=== PATIENT | female | born 1960 | race Caucasian/White ===

== ENCOUNTER 2017-10-22 09:03 | Day surgery (SDC) | payer MEDICAID, SELFPAY ==
[2017-10-22 09:21] VITALS: BP 171/91; PULSE 78; RESP 16; TEMP 36.3; O2SAT 100; BMI 23.1
--- NOTE | 2017-10-22 10:39 | COLBX_PTH ---
PATIENT: SUE BROWN LOC: EN U#:[id number] AGE/SX: 57/F ROOM: RE10/22/[address]: Dr. Carter Workman MD : 1960 BED: DIS: 10/22/2017 SPEC #: [id number] RECD: 10/22/17 15:38 STATUS: VIANEY REQ #: [id number] RAVIN: 10/22/17 10:[address]: Carter Workman DEPT: SURGICAL PATHOLOGY RECD BY: Cory Riojas ENTERED: 10/23/17 08:52 SP TYPE: COLON BX OTHR DR: Dr. Luz Maria Prado DO Tissues: Descending colon Procedures: Surgery Specimen Level IV HEADER OPERATION: Colonoscopy PRE-OP DIAGNOSIS: Screening TISSUE SUBMITTED: Descending colon polyp biopsy MICROSCOPIC DIAGNOSIS Descending colon polyp, biopsy: Fragments of tubular adenoma. AM:jarrell 10/24/17 MICROSCOPIC DESCRIPTION Slides are reviewed. GROSS DESCRIPTION Received in fixative is one container labeled with the patient's name and designated descending colon biopsy. The specimen consists of two irregular fragments of light morocho soft tissue that in aggregate measure 0.5 x 0.2 x 0.1 cm. The specimen is totally submitted in one cassette. / AM:jarrell 10/23/17 TC:5 CPT: 08549
--- NOTE | 2017-10-22 10:43 | PCM.HP.STD ---
Problem List (1) Personal history of colonic polyps Status: Acute History of Present Illness Date of Admission: 10/22/17 The patient is a 57 year old F with a personal history of colonic polyps. She presents today for a colonoscopy. Past Medical History Allergies sulfamethoxazole [From Bactrim] Adverse Reaction (Verified 10/16/17 09:23) Mucosal lesions trimethoprim [From Bactrim] Adverse Reaction (Verified 10/16/17 09:23) Mucosal lesions Home Medications: Ambulatory Orders Medication Instructions Recorded Dorzolamide-Timolol Eye Drops 1 drop EACH EYE BID 10/16/17 Latanoprost 0.005% [Xalatan 1 drop EACH EYE QHS 10/16/17 Opthalmic] Metoprolol Tartrate 25 mg PO BID 10/16/17 Smoking Status: Never smoker Review of Systems Cardiovascular: Denies: Chest Pain, Chest Pressure, Chest Tightness, Palpitations Respiratory: Denies: Cough, Hemoptysis, Shortness of breath at rest, Shortness of breath upon exertion, Wheezing Gastrointestinal: Denies: Abdominal Pain, Constipation, Diarrhea, Hematemesis, Nausea, Melena, Vomiting VTE Information - Inpt Only VTE Present on Admission: No VTE Mechan Device Prophylaxis: None VTE Pharm Prophylaxis ordered?: No Reason prophylaxis not ordered:: Treatment Not Indicated Patient Problems: Active and Suspected Problems Personal history of colonic polyps (Acute) - Physical Exam Lungs: Clear to auscultation Cardiovascular: Regular rate, Regular Rhythm, No murmurs Abdomen: Bowel Sounds Present, Soft, Non Tender, Non-Distended Vital Signs Temp Pulse Resp BP Pulse Ox 97.3 F L 78 16 171/91 H 100 10/22/17 09:21 10/22/17 09:21 10/22/17 09:21 10/22/17 09:21 10/22/17 09:21 Oxygen Delivery Method Room Air Weight: 143 lb 4.807 oz Body Mass Index (BMI) 23.1 Assessment/Plan Active and Suspected Problems Personal history of colonic polyps (Acute) My plan is to perform a colonoscopy.
--- NOTE | 2017-10-22 10:45 | PCM.OPRPT ---
Problem List (1) Personal history of colonic polyps Status: Acute Report of Operation Date of Procedure: 10/22/17 Pre-Operative Diagnosis: z86.010 personal history of colonic polyps Post-Operative Diagnosis: Same Surgery/Procedure Performed:: 40361 colonoscopy with biopsy of polyp Type of Anesthesia:: MAC Anesthesiologist: Siddhartha Rosas Description of Procedure: Patient was brought into the endoscopy suite. Placed in the left lateral decubitus position. Given graded anesthesia. Scope was inserted into the rectum and directed through the sigmoid colon, descending colon, transverse colon, ascending colon, to the cecum. Operative findings: 1. Cecum: Normal appearance no mass lesions normal ileocecal valve. 2. Ascending colon: Normal appearance no mass lesions 3. Transverse colon: Normal appearance no mass lesions. 4. Descending colon: Normal appearance no mass lesions. Small hyperplastic polyp was identified and was ablated with biopsy forceps. Good hemostasis was noted. 5. Sigmoid colon: Normal appearance no mass lesions. 6. Rectum: Normal appearance no mass lesions retroflexion did show some internal hemorrhoidal disease. The scope was withdrawn digital rectal exam was performed showing a smooth anus with no nodules. The patient will need another colonoscopy in 3 years. - Admit VTE Documentation VTE Present on Admission: No VTE Mechan Device Prophylaxis: None VTE Pharm Prophylaxis ordered?: No Reason prophylaxis not ordered:: Treatment Not Indicated
[2017-10-22 10:46] VITALS: BP 105/77; BP 171/91; PULSE 86; RESP 16; TEMP 36.2; O2SAT 100
[2017-10-22 10:50] VITALS: BP 110/76; BP 171/91; PULSE 85; RESP 16; O2SAT 100
[2017-10-22 10:55] VITALS: BP 109/73; BP 171/91; PULSE 73; RESP 16; O2SAT 100
[2017-10-22 11:02] VITALS: BP 113/72; BP 171/91; PULSE 65; RESP 16; TEMP 36.6; O2SAT 100
[2017-10-22 11:16] VITALS: BP 171/91
== END 2017-10-22 11:25 | disposition home or self-care (01) ==
LOC: EN 09:04 → AC 09:07
PROVIDERS: Family Provider Family Medicine; PCP Family Medicine; Visit Provider Surgery
PROC: 0DJD8ZZ Inspection of Lower Intestinal Tract, Via Natural or Artificial Opening Endoscopic (ICD-10-PCS; CPT 45378; principal; 2017-10-22 09:55)
DX: D12.4 Benign neoplasm of descending colon (principal); K64.8 Other hemorrhoids; I10 Essential (primary) hypertension; Z86.010 Personal history of colon polyps; Z79.899 Other long term (current) drug therapy
CPT/HCPCS: 45385; 88305; J7120

== ENCOUNTER 2023-11-12 09:42 | Day surgery (SDC) | payer OTHER, SELFPAY ==
[2023-11-12 10:09] VITALS: BP 152/80; PULSE 64; RESP 16; TEMP 36.1; O2SAT 100; BMI 26.2
[2023-11-12] MEDS: Lactated Ringers 1,000 ML 15 ML IV (10:15)
--- NOTE | 2023-11-12 10:18 | HP.PCM_ITS ---
[facility] - General General Date of Admission: 11/12/23 Date of Service: 11/12/23 Chief Complaint: Screening colonoscopy HPI Narrative SUE BROWN, is a 63 F who presents for follow-up colonoscopy. She had a colonoscopy in 2018 and had 1 adenomatous polyp there was removed by Dr. Workman. She denies any abdominal pain. She denies any chest pain or shortness of breath. Overall she is in very good health. She has a past medical history of hypertension is controlled with medicines. She also has a past medical history of hypercholesterolemia which is also controlled with medicines. [facility] Medical History (Updated 11/07/23 @ 13:19 by Leelee Cast) Alcohol use Arthritis Gastric reflux High cholesterol Hypertension Non-smoker Post-menopausal Wears glasses Home Medications Dorzolamide-Timolol Eye Drops 1 drp BID 10/16/17 [History Last Taken Unknown] netarsudil 0.02 %-latanoprost 0.005 % eye drops (Rocklatan) 1 drp ophthalmic (eye) DAILY 10/10/23 [History Last Taken Unknown] atorvastatin 40 mg tablet 40 mg PO DAILY 11/07/23 [History Last Taken Unknown] brimonidine 0.2 % eye drops 1 drp ophthalmic (eye) BID 11/07/23 [History Last Taken Unknown] fexofenadine 60 mg-pseudoephedrine ER 120 mg tablet,ext.release,12 hr (Vannessa-D 12 Hour) 1 tab PO QHS PRN allergy symptoms 11/07/23 [History Last Taken Unknown] metoprolol tartrate 50 mg tablet 50 mg PO BID 11/07/23 [History Last Taken 11/12/23] Allergy/AdvReac Type Severity Reaction Status Date / Time sulfamethoxazole AdvReac Mucosal Verified 11/12/23 10:09 [From Bactrim] lesions trimethoprim [From Bactrim] AdvReac Mucosal Verified 11/12/23 10:09 lesions Family History Mother Diabetes Surgical History (Updated 11/07/23 @ 13:19 by Leelee Cast) History of carpal tunnel surgery of right wrist Hx of colonoscopy S/P lumpectomy, left breast S/P tubal ligation Social History Smoking Status: Never smoker second hand exposure: No alcohol intake: current alcohol intake frequency: a few times a week Alcohol type: beer substance use type: does not use caffeine: Yes seatbelt use: always ROS Review of Systems ROS Unobtainable: other Constitutional Constitutional: Denies fatigue, fever(s), poor appetite, weight gain or weight loss ENT HEENT: Denies mouth lesions Cardiovascular Cardiovascular: Denies abdominal bloating, abdominal edema or abdominal pain Respiratory/Chest Respiratory/Chest: Denies change in mental status, change in phlegm color, chest congestion or chest tightness Gastrointestinal Gastrointestinal: Denies belching, bloating, change in bowel habits, change in stool character, chewing difficulty, coffee ground emesis, constipation, cramping, diarrhea, dyspepsia, dysphagia, early satiety, excessive flatus, fecal incontinence, heartburn, hematemesis, hematochezia, hemorrhoids, loose stools, melena, nausea, odynophagia, rectal bleeding, tenesmus, vomiting or weight changes Genitourinary Genitourinary: Denies abdominal discomfort, burning urination or itching Musculoskeletal Musculoskeletal: Reports as per HPI; Denies muscle weakness or myalgias Integumentary Integumentary: Denies jaundice Neurologic Neurologic: Denies lack of coordination or weakness Psychiatric Psychiatric: Denies confusion, depression, memory loss, mood swings, paranoia or suicidal ideation Endocrine Endocrinology: Denies systems reviewed and no addt'l complaints, except as documented Hematologic/Lymphatic Hematologic/Lymphatic: Denies anemia, easy bleeding, easy bruising or lymphadenopathy Allergic/Immunologic Allergic/Immunologic: Denies systems reviewed and no addt'l complaints, except as documented Vital Signs Vital Signs Vital Signs: 11/12/23 10:09 11/12/23 10:09 Temperature 97 F L Temperature Source Temporal Pulse Rate 64 Respiratory Rate 16 Respiratory Pattern Normal Blood Pressure 152/80 H Blood Pressure Mean 104 Blood Pressure Source Monitor Blood Pressure Position Semi-Fowlers Blood Pressure Location Right Arm Pulse Ox 100 Oxygen Delivery Method Room Air Weight Weight: 162 lb 4.163 oz Body Mass Index (BMI) 26.2 Physical Exam Const alert General Appearance: cooperative Orientation / Consciousness: oriented to person HEENT hearing grossly normal bilaterally Head and Scalp: normal to inspection Face and Sinus: face symmetric Nose: external nose normal Mouth: oral and palatal mucosa normal Eyes conjunctivae normal General Eye: normal appearance of both eyes Neck full ROM General: normal visual inspection Lymph Lymphatic: no lymphadenopathy noted Chest inspection of chest normal and palpation of chest normal Chest: symmetrical chest wall rise Resp normal respiratory effort Effort and Inspection: able to speak in complete sentences Cardio regular rate GI non-distended Percussion: normal to percussion Rectal Exam: deferred Neuro Speech: speech normal Gait (Neuro): normal gait Assessment & Plan Assessment/Plan (1) Encounter for screening for malignant neoplasm of colon: PLAN: She was explained alternatives, risk, benefits including not withstanding bleeding, infection, sepsis, perforation, need for emergent urgent . She will have an ASA of 3.
--- NOTE | 2023-11-12 10:45 | COLBX_PTH ---
PATIENT: SUE BROWN LOC: EN U#:[id number] AGE/SX: 63/F ROOM: RE11/12/[address]: Dr. Johny Mello DO : 1960 BED: DIS: 11/12/2023 SPEC #: [id number] RECD: 11/12/23 13:36 STATUS: VIANEY REJessica #: [id number] RAVIN: 11/12/23 10:[address]: Johny Mello DEPT: SURGICAL PATHOLOGY RECD BY: Karen Christianson ENTERED: 11/12/23 13:57 SP TYPE: COLON BX NEENA DR: Dr. Luz Maria Prado DO Tissues: A - Ascending colon B - Sigmoid colon biopsy Procedures: Surgery Specimen Level IV HEADER OPERATION: Colonoscopy with biopsies and polypectomy PRE-OP DIAGNOSIS: Encounter for screening for malignant neoplasm of colon TISSUE SUBMITTED: A- Ascending colon polyp biopsy, B- Polyp sigmoid MICROSCOPIC DIAGNOSIS A. Ascending colon polyp, biopsy: Tubular adenoma. B. Sigmoid colon polyp, biopsy: Hyperplastic polyp. / 11/14/23 MICROSCOPIC DESCRIPTION Slides are reviewed. GROSS DESCRIPTION A. Received in fixative is one container labeled with the patient's name and designated Ascending colon polyp. The specimen consists of multiple irregular fragments of light morocho soft tissue that in aggregate measure 0.5 x 0.3 x 0.1 cm. The specimen is totally submitted in one cassette. B. Received in fixative is one container labeled with the patient's name and designated Sigmoid colon polyp. The specimen consists of one irregular fragment of light morocho soft tissue that in aggregate measure 0.5 x 0.3 x 0.1 cm. The specimen is totally submitted in one cassette. 11/12/23 TC:5 CPT:08623h1
[2023-11-12 11:20] VITALS: BP 100/63; BP 103/61; BP 152/80; PULSE 61; PULSE 72; RESP 16; TEMP 36.3; O2SAT 100
--- NOTE | 2023-11-12 11:20 | OP.COLON_ITS ---
Patient Name: Faiza Bryson Procedure Date: 11/12/2023 10:47 AM Date of : 1960 Age: 63 Procedure: Colonoscopy Indications: High risk colon cancer surveillance: Personal history of colonic polyps Providers: Johny Mello DO Medicines: Monitored Anesthesia Care Patient Profile: This is a 63 year old female. Refer to note in patient chart for documentation of history and physical. Last Colonoscopy: 5 years ago. Complications: No immediate complications. Procedure: Pre-Anesthesia Assessment: - Prior to the procedure, a History and Physical was performed, and patient medications and allergies were reviewed. The patient is competent. The risks and benefits of the procedure and the sedation options and risks were discussed with the patient. All questions were answered and informed consent was obtained. Patient identification and proposed procedure were verified by the physician in the pre-procedure area. Mental Status Examination: alert and oriented. Airway Examination: normal oropharyngeal airway and neck mobility. Respiratory Examination: clear to auscultation. CV Examination: normal. Prophylactic Antibiotics: The patient does not require prophylactic antibiotics. Prior Anticoagulants: The patient has taken no anticoagulant or antiplatelet agents. ASA Grade Assessment: II - A patient with mild systemic disease. After reviewing the risks and benefits, the patient was deemed in satisfactory condition to undergo the procedure. The anesthesia plan was to use monitored anesthesia care (MAC). Immediately prior to administration of medications, the patient was re-assessed for adequacy to receive sedatives. The heart rate, respiratory rate, oxygen saturations, blood pressure, adequacy of pulmonary ventilation, and response to care were monitored throughout the procedure. The physical status of the patient was re-assessed after the procedure. After I obtained informed consent, the scope was passed under direct vision. Throughout the procedure, the patient's blood pressure, pulse, and oxygen saturations were monitored continuously. The Colonoscope was introduced through the anus and advanced to the cecum, identified by appendiceal orifice and ileocecal valve. The colonoscopy was performed without difficulty. The patient tolerated the procedure well. The quality of the bowel preparation was adequate. Scope In: 10:58:04 AM Scope Withdrawal Time 0 hours 15 minutes 31 seconds Scope Out: 11:16:31 AM Total Procedure Duration Time 0 hours 18 minutes 27 seconds Findings: The perianal and digital rectal examinations were normal. A 4 mm polyp was found in the hepatic flexure. The polyp was sessile. The polyp was removed with a jumbo cold forceps. Resection and retrieval were complete. Verification of patient identification for the specimen was done. Estimated blood loss was minimal. An 8 mm polyp was found in the sigmoid colon. The polyp was sessile. The polyp was removed with a hot snare. Resection and retrieval were complete. Verification of patient identification for the specimen was done. Estimated blood loss was minimal. Multiple small-mouthed diverticula were found in the recto-sigmoid colon, sigmoid colon and transverse colon. Impression: - One 4 mm polyp at the hepatic flexure, removed with a jumbo cold forceps. Resected and retrieved. - One 8 mm polyp in the sigmoid colon, removed with a hot snare. Resected and retrieved. - Diverticulosis in the recto-sigmoid colon, in the sigmoid colon and in the transverse colon. Recommendation: - Discharge patient to home. - Resume previous diet. - Continue present medications. - Await pathology results. - Repeat colonoscopy in 5 years for surveillance. Procedure Code(s): --- Professional --- 26131, Colonoscopy, flexible; with removal of tumor(s), polyp(s), or other lesion(s) by snare technique 77719, 59, Colonoscopy, flexible; with biopsy, single or multiple CPT copyright 2021 [employer]. All rights reserved. The codes documented in this report are preliminary and upon silver miner review may be revised to meet current compliance requirements. Johny Mello DO 11/12/2023 11:20:27 AM This report has been signed electronically. Number of Addenda: 0 Note Initiated On: 11/12/2023 10:47 AM
--- NOTE | 2023-11-12 11:21 | OP.CCLET_ITS ---
11/12/2023 Luz Maria Prado Re : Colonoscopy procedure for Faiza Bryson Dear Eve This procedure was performed on Sunday, November 12, 2023. My impressions and recommendations are as follows: Impressions : - One 4 mm polyp at the hepatic flexure, removed with a jumbo cold forceps. Resected and retrieved. - One 8 mm polyp in the sigmoid colon, removed with a hot snare. Resected and retrieved. - Diverticulosis in the recto-sigmoid colon, in the sigmoid colon and in the transverse colon. Recommendations : - Discharge patient to home. - Resume previous diet. - Continue present medications. - Await pathology results. - Repeat colonoscopy in 5 years for surveillance. My findings are described in the full procedure note, which is enclosed. If I can be of further assistance, please feel free to contact me at . Sincerely, Johny Mello, 11/12/2023 11:20:27 AM This report has been signed electronically.
[2023-11-12 11:32] VITALS: BP 110/67; BP 152/80; PULSE 60; RESP 16; O2SAT 99
[2023-11-12 11:39] VITALS: BP 113/70; BP 152/80; PULSE 61; RESP 16; TEMP 36.1; O2SAT 100
[2023-11-12 11:55] VITALS: BP 152/80
== END 2023-11-12 12:03 | disposition home or self-care (01) ==
LOC: EN 09:45 → AC 09:48
PROVIDERS: PCP Family Medicine; Referring Provider Family Medicine; Visit Provider Internal Medicine Gastroenterology
PROC: 0DJD8ZZ Inspection of Lower Intestinal Tract, Via Natural or Artificial Opening Endoscopic (ICD-10-PCS; CPT 45378; principal; 2023-11-12 10:40)
DX: Z12.11 Encounter for screening for malignant neoplasm of colon (principal); E78.00 Pure hypercholesterolemia, unspecified; Z86.010 Personal history of colon polyps; I10 Essential (primary) hypertension; K57.30 Diverticulosis of large intestine without perforation or abscess without bleeding; Z79.899 Other long term (current) drug therapy; K21.9 Gastro-esophageal reflux disease without esophagitis; D12.2 Benign neoplasm of ascending colon
CPT/HCPCS: 45385; 45380; 88305; J7120; J2405